=== PATIENT | female | born 1970 | race Caucasian/White ===

== ENCOUNTER 2019-09-17 04:23 | Emergency (ER) | payer BC ==
[2019-09-17] MEDS ORDERED: GI Cocktail Oral Solution 30 ML PO ONE (04:49)
--- NOTE | 2019-09-17 04:52 | EDM.PDOC ---
ED HPI GENERAL MEDICAL PROBLEM - General Chief Complaint: General Stated Complaint: CHEST PAINS Time Seen by Provider: 09/17/19 04:49 Source of Information: Reports: Patient History Limitations: Reports: No Limitations - History of Present Illness INITIAL COMMENTS - FREE TEXT/NARRATIVE: woke up with mid sternal pain. 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 ate sausage link at midnight. had GI cocktail before. Epigastric Pain Score (Numeric/FACES): 7 - Related Data Allergies Allergy/AdvReac Type Severity Reaction Status Date / Time latex Allergy Itching Verified 09/17/19 04:50 Home Meds: Home Meds Pantoprazole Sodium 40 mg PO DAILY 09/17/19 [History] Past Medical History - Past Surgical History GI Surgical History: Reports: Cholecystectomy, Other (See Below) Other GI Surgeries/Procedures: Gastric Bypass - 07/2018 Female Surgical History: Reports: Hysterectomy Social & Family History - Family History Family Medical History: Noncontributory - Tobacco Use Smoking Status *Q: Never Smoker Second Hand Smoke Exposure: No - Caffeine Use Caffeine Use: Reports: Coffee - Recreational Drug Use Recreational Drug Use: No ED ROS GENERAL - Review of Systems Review Of Systems: Comprehensive ROS is negative, except as noted in HPI. ED EXAM, GENERAL - Physical Exam Exam: See Below Exam Limited By: No Limitations General Appearance: Alert, WD/WN, Mild Distress, Other (discomfort) Ears: Hearing Grossly Normal Throat/Mouth: Normal Voice, No Airway Compromise Head: Atraumatic Neck: Non-Tender, Full Range of Motion Respiratory/Chest: No Respiratory Distress Cardiovascular: Regular Rate, Rhythm GI/Abdominal: Tender, Other (minor epiG discomfort). No: Distended, Guarding, Rigid, Rebound Neurological: Alert, Oriented, Normal Cognition, Normal Gait, No Motor/Sensory Deficits Psychiatric: Normal Affect, Normal Mood Skin Exam: Warm, Dry, Normal Color Lymphatic: No Adenopathy Course - Vital Signs Last Recorded V/S: Last Vital Signs Temp 36.8 C 09/17/19 04:36 Pulse 55 L 09/17/19 04:49 Resp 19 09/17/19 04:36 BP 114/63 09/17/19 04:49 Pulse Ox 100 09/17/19 04:36 - Orders/Labs/Meds Labs: Laboratory Tests 09/17/19 09/17/19 Range/Units 05:40 05:40 WBC 9.4 (5.0-10.0) 10^3/uL RBC 4.28 (4.2-5.4) 10^6/uL Hgb 12.8 (12.0-16.0) g/dL Hct 38.6 (37.0-47.0) % MCV 90.2 (80-100) fL MCH 29.9 (27.0-34.0) pg MCHC 33.2 (33.0-35.0) g/dL Plt Count 230 (150-450) 10^3/uL Neut % (Auto) 74.6 (42.2-75.2) % Lymph % (Auto) 14.9 L (20.5-50.1) % [place] % (Auto) 8.2 H (2-8) % Eos % (Auto) 1.6 (1.0-3.0) % Baso % (Auto) 0.7 (0.0-1.0) % Sodium 141 (135-145) mmol/L Potassium 3.4 L (3.6-5.0) mmol/L Chloride 107 (101-111) mmol/L Carbon Dioxide 23.0 (21.0-31.0) mmol/L Anion Gap 14.4 BUN 20 H (7-18) mg/dL Creatinine 0.7 (0.6-1.3) mg/dL Est Cr Clr Drug Dosing 85.71 mL/min Estimated GFR (MDRD) > 60 BUN/Creatinine Ratio 28.57 Glucose 83 (74-105) mg/dL Calcium 9.2 (8.4-10.2) mg/dl Total Bilirubin 0.8 (0.2-1.0) mg/dL AST 18 (10-42) IU/L ALT 14 (10-60) IU/L Alkaline Phosphatase 54 (42-121) IU/L Troponin I < 0.02 (0.00-0.02) ng/ml Total Protein 6.9 (6.7-8.2) g/dl Albumin 3.8 (3.2-5.5) g/dl Globulin 3.1 Albumin/Globulin Ratio 1.23 Meds: Medications Discontinued Medications Generic Name Dose Route Start Last Admin Trade Name Freq PRN Reason Stop Dose Admin Al Hydroxide/Mg Hydroxide 30 ml 09/17/19 04:49 09/17/19 04:55 Gi Cocktail PO 09/17/19 04:50 30 ml ONETIME ONE Administration Ondansetron HCl 4 mg 09/17/19 04:59 09/17/19 05:05 Zofran Odt PO 09/17/19 05:00 4 mg ONETIME ONE Administration - Re-Assessments/Exams Free Text/Narrative Re-Assessment/Exam: 09/17/19 05:33 re-exam; s/p GI cocktail = much better but not 100%. 09/17/19 06:16 results discussed with pt who feels good right now. Departure - Departure Time of Disposition: 06:17 Disposition: Home, Self-Care 01 Condition: Good Clinical Impression: GERD (gastroesophageal reflux disease) Qualifiers: Esophagitis presence: with esophagitis Qualified Code(s): K21.0 - Gastro- esophageal reflux disease with esophagitis - Discharge Information Forms: ED Department Discharge Additional Instructions: 1) recheck as needed Sepsis Event Note - Evaluation Sepsis Screening Result: No Definite Risk - Focused Exam Vital Signs: Vital Signs Temp Pulse Resp BP Pulse Ox 09/17/19 04:49 55 L 114/63 09/17/19 04:36 36.8 C 19 97/57 L 100 Date Exam was Performed: 09/17/19 Time Exam was Performed: 06:16
[2019-09-17] MEDS ORDERED: Ondansetron 4 MG Tab.DIS PO ONE (04:59)
[2019-09-17 06:07] LABS: ANION GAP 14.4; CHLORIDE,CL 107 mmol/L (101-111); SODIUM,NA 141 mmol/L (135-145)
== END 2019-09-17 06:21 | disposition home or self-care (01) ==
LOC: DL.ED 04:23
DX: K21.0 Gastro-esophageal reflux disease with esophagitis (principal); Z91.040 Latex allergy status; Z90.49 Acquired absence of other specified parts of digestive tract; Z79.899 Other long term (current) drug therapy
CPT/HCPCS: 36415; 80053; 84484; 85025; 99284; A9270